=== PATIENT | female | born 1980 | race Caucasian/White ===

== ENCOUNTER → 2016-11-04 | Outpatient (CLI) | payer OTHER ==
[~2016-11-04] MED LIST: AMOX875T PO; AMX500 PO; ASPI-390 PO; ONDA4TAB46 PO
--- NOTE | 2016-11-09 16:49 | ELECTROENCEPHALOGRAPH REPORT ---
CLINICAL DIAGNOSIS: Syncope, question seizures. EEG DIAGNOSIS: Essentially normal during wakefulness. DESCRIPTION OF TRACING: This EEG was done as an outpatient basis and was of excellent technical quality with few or no muscle movement artifacts. Video analysis of patient movement, some behavior is also obtained. Photic stimulation and hyperventilation are performed. Drowsiness and light sleep were not recorded. Under these conditions, there is evidence for normal background rhythm in the alpha range of up to 10 Hz of maximum frequency and 30 microvolts of maximum amplitude. This is maximum in posterior head regions and bilaterally symmetrical. Polymorphic mid frequency theta activity is seen over all head regions without clear focal or regional predominance. Anterior head region maximum bilaterally symmetrical low voltage fast activity in the beta range is present. Photic stimulation provoked some modest driving response without a photomyogenic or photoparoxysmal component. Hyperventilation induces no important changes. At no time during the waking tracing is there evidence for potentially epileptogenic activity in the form of polyspike or spike wave bursts, focal sharp waves or focal spikes. INTERPRETATION: This electroencephalogram is essentially normal during wakefulness without evidence for focal or generalized encephalopathy and without evidence for potentially epileptogenic activity.
== END | disposition home or self-care (01) ==
LOC: C.NEUR 07:55
PROVIDERS: ATTEND Psychiatry & Neurology Neurology
DX: R55 Syncope and collapse (principal)

== ENCOUNTER 2016-11-11 20:13 | Emergency (ER) | payer OTHER ==
[~2016-11-11] VITALS: Ht 157.5 cm; Wt 73.5 kg
[~2016-11-11 20:13] MED LIST changes: -AMOX875T PO; -AMX500 PO; -ASPI-390 PO
[2016-11-11 20:19] VITALS: TEMP 36.9; Ht 157.5 cm; Wt 73.5 kg
[2016-11-11] MEDS ORDERED: AMX500 PO (21:17)
[2016-11-11] MEDS ORDERED: ASPI-390 PO (21:17)
[2016-11-11] MEDS ORDERED: ONDANSETRON INJ 2 MG/ML 2 ML VIAL IV STA (21:56)
[2016-11-11] MEDS ORDERED: KETOROLAC TROMETHAMINE 30 MG/ML VIAL IV STA (21:56)
[2016-11-11] MEDS ORDERED: SODIUM CHLORIDE 0.9% 1000ML 1,000 ML IV ONE ×2 (22:00)
[2016-11-11 22:58] LABS: URINE APPEARANCE CLOUDY (CLEAR); URINE BILIRUBIN NEG (NEG); URINE COLOR YELLOW; URINE EPITHELIAL CELL AUTO >30 /lpf (0-5); URINE NITRITE NEG (NEG); URINE PH 7.5 (4.5-7.5); URINE SPECIFIC GRAVITY 1.021 (1.000-1.030); UROBILINOGEN NEG (NEG); ZZUR CULT IF INDIC CLEAN CATCH NO
[2016-11-11 23:05] LABS: HEMATOCRIT 45.9 % (37-47); MEAN CORPUSCULAR HEMOGLOBIN 30.8 pg (25-34); MEAN CORPUSCULAR HGB CONC 34.6 g/dl (32-36); MEAN PLATELET VOLUME 10.5 fL (7.4-10.4); PLATELET COUNT 317 K/uL (130-400); RED BLOOD COUNT 5.16 M/uL (4.2-5.4); WHITE BLOOD COUNT 16.53 K/uL (4.8-10.8)
[2016-11-11 23:20] LABS: MANUAL MICROSCOPIC REQUIRED? NO; REVIEW REQ? NO
[2016-11-11 23:23] LABS: BUN/CREATININE RATIO 14.4 (10-20); CALCIUM 8.9 mg/dl (8.5-10.1); CREATININE 0.8 mg/dl (0.60-1.20); MAGNESIUM 2.3 mg/dl (1.8-2.4); POTASSIUM 3.8 mmol/L (3.5-5.1)
[2016-11-11 23:33] LABS: ALB/GLOB RATIO 1.1 (0.9-2); THYROID STIMULATING HORMONE 1.3 uIu/ml (0.300-4.500)
[2016-11-11 23:46] LABS: BASO % 0.3 %; BASO ABS # 0.05 K/uL (0-0.2); COMPLETE YES; EOS % 0.9 %; IG% 0.2 %; LYMPH % 40.6 %; LYMPH ABS # 6.71 K/uL (1.2-3.4)
[2016-11-12] MEDS ORDERED: ACETAMINOPHEN 500 MG TAB PO STA (00:07)
[2016-11-12 00:22] LABS: LYME DISEASE AB IGG NEG (NEG); LYME DISEASE AB IGM NEG (NEG)
[2016-11-12] MEDS ORDERED: AMOX875T PO (00:55)
[2016-11-12] MEDS ORDERED: OXYCODONE IR HOME PACK PO ONE (01:00)
[2016-11-12] MEDS ORDERED: AMOXICIL/CLAVU 875MG HOME PACK PO ONE (01:00)
[2016-11-12 01:18] VITALS: BP 117/71; PULSE 73; O2SAT 93
--- NOTE | 2016-11-12 04:45 | EMERGENCY ROOM VISIT NOTE ---
History First contact with patient: 21:42 Chief Complaint: HEADACHE Stated Complaint: HEADACHE,NAUSEA,PASSED OUT LASTNIGHT,REFERREDFORCT History of Present Illness The patient is a 36 year old female who presents to the Emergency Room with complaints of headache and nausea slowly worsening over the past one day. The patient has a fairly recent medical history of intermittent syncopal episodes. She has had 3 or 4 episodes over the past few months, and is currently under the care of both cardiology and neurology. The patient states that she had a syncopal episode last night. She was standing talking to a friend, and the next thing she remembers she woke up on the ground. The patient did not have significant head injury or extremity injury. She states that these episodes are all essentially identical, or she feels flushed, nauseated, and then loses consciousness. She did not notice significant injury immediately following this episode last night, and did not seek immediate medical attention. The patient states that she slept, woke up, and now has her headache. The patient contacted her family doctor, who referred her to the emergency department for further care and management. The patient rates her current discomfort a 6/10. She does not have neck pain, chest pain, chest tightness, shortness of breath, palpitations, or extremity injury. No numbness or paresthesias. She took ibuprofen without significant relief. Review of Systems More than 10 systems were reviewed and otherwise negative with the exception of history of present illness. Past Medical/Surgical History Medical Problems: (1) Full dentures (2) Syncope Family History No pertinent family history Social History Smoking Status: Current Every Day Smoker Alcohol Use: occasionally Drug Use: none Housing Status: lives with family Occupation Status: employed Current/Historical Medications Scheduled Amoxicillin (Amoxicillin), 500 MG PO TID Amoxicillin & Pot Clavulanate (Augmentin 875-125 mg), 1 TAB PO BID Qzoarbt-Hvhseoapsplgy-Cwzdbavq (Excedrin Migraine), 6 TAB PO Q12 Allergies Coded Allergies: No Known Allergies (Unverified , 11/11/16) Physical Exam Vital Signs Date Time Temp Pulse Resp B/P Pulse Ox O2 Delivery O2 Flow Rate FiO2 11/12/16 01:18 73 16 117/71 93 Room Air 11/11/16 23:01 78 128/94 73 134/92 81 130/83 11/11/16 22:41 86 18 125/89 99 Room Air 11/11/16 22:40 Room Air 11/11/16 20:19 36.9 105 18 156/91 97 Room Air Pain Rating (0-10): 1.0 Physical Exam VITALS: Vitals are noted on the nurse's note and reviewed by myself. Vital signs stable. GENERAL: Well-developed, well-nourished, white female, who is in no acute distress and resting comfortably. Patient is cooperative with the examination. HEAD: Normocephalic atraumatic. EARS: External ear normal. External auditory canals clear, tympanic membranes pearly rosario without erythema or effusion bilaterally. EYES: Pupils equal round and reactive to light and accommodation. Conjunctivae without injection, sclerae without icterus. Extraocular movements intact. NOSE: Patent, turbinates without inflammation or discharge. MOUTH: Mucous membranes moist. Tonsils are not enlarged. Pharynx without erythema, blood, or exudate. Uvula midline. Airway patent. NECK: Supple without nuchal rigidity. No lymphadenopathy. No thyromegaly. Cervical spine is nontender. HEART: Regular rate and rhythm without murmurs gallops or rubs. LUNGS: Clear to auscultation bilaterally without wheezes, rales or rhonchi. No retractions or accessory muscle use. ABDOMEN: Positive normal bowel sounds x 4. Soft, nontender, without masses or organomegaly. No guarding or rebound tenderness. MUSCULOSKELETAL: No muscle atrophy, erythema, or edema noted. Full range of motion without joint tenderness in all extremities. No tenderness to palpation. NEURO: Patient was alert and oriented to person place and time. CN II through XII grossly intact. Deep tendon reflexes 2+ throughout. No focal neurological deficits SKIN: The skin was without rashes, erythema, edema, or bruising. Capillary reflex less than 2 seconds. Medical Decision & Procedures ER Provider Diagnostic Interpretation: Preliminary Findings Only See Final Report For Complete Findings CT HEAD: No ICH, mass effect or edema. No evidence of acute cortical stroke. Air-fluid level noted in the left maxillary sinus with partial opacification of the anterior ethmoid air cells. Nonspecific right posterior scalp nodule. Comparison study dated 09/13/2016 Laboratory Results 11/11/16 22:50 Red Blood Count 5.16, Mean Corpuscular Volume 89.0, Mean Corpuscular Hemoglobin 30.8, Mean Corpuscular Hemoglobin Concent 34.6, Mean Platelet Volume 10.5, Neutrophils (%) (Auto) 53.0, Lymphocytes (%) (Auto) 40.6, Monocytes (%) (Auto) 5.0, Eosinophils (%) (Auto) 0.9, Basophils (%) (Auto) 0.3, Neutrophils # (Auto) 8.75, Lymphocytes # (Auto) 6.71, Monocytes # (Auto) 0.83, Eosinophils # (Auto) 0.15, Basophils # (Auto) 0.05 11/11/16 22:50 Test 11/11/16 22:45 11/11/16 22:50 11/11/16 23:03 Urine Color YELLOW Urine Appearance CLOUDY (CLEAR) Urine pH 7.5 (4.5-7.5) Urine Specific Eola 1.021 (1.000-1.030) Urine Protein NEG (NEG) Urine Glucose (UA) NEG (NEG) Urine Ketones NEG (NEG) Urine Occult Blood NEG (NEG) Urine Nitrite NEG (NEG) Urine Bilirubin NEG (NEG) Urine Urobilinogen NEG (NEG) Urine Leukocyte Esterase TRACE (NEG) Urine WBC (Auto) 5-10 /hpf (0-5) Urine RBC (Auto) 5-10 /hpf (0-4) Urine Hyaline Casts (Auto) 1-5 /lpf (0-5) Urine Epithelial Cells (Auto) >30 /lpf (0-5) Urine Bacteria (Auto) NEG (NEG) Urine Test NEG (NEG) White Blood Count 16.53 K/uL (4.8-10.8) Red Blood Count 5.16 M/uL (4.2-5.4) Hemoglobin 15.9 g/dL (12.0-16.0) Hematocrit 45.9 % (37-47) Mean Corpuscular Volume 89.0 fL (80-100) Mean Corpuscular Hemoglobin 30.8 pg (25-34) Mean Corpuscular Hemoglobin Concent 34.6 g/dl (32-36) Platelet Count 317 K/uL (130-400) Mean Platelet Volume 10.5 fL (7.4-10.4) Neutrophils (%) (Auto) 53.0 % Lymphocytes (%) (Auto) 40.6 % Monocytes (%) (Auto) 5.0 % Eosinophils (%) (Auto) 0.9 % Basophils (%) (Auto) 0.3 % Neutrophils # (Auto) 8.75 K/uL (1.4-6.5) Lymphocytes # (Auto) 6.71 K/uL (1.2-3.4) Monocytes # (Auto) 0.83 K/uL (0.11-0.59) Eosinophils # (Auto) 0.15 K/uL (0-0.5) Basophils # (Auto) 0.05 K/uL (0-0.2) RDW Standard Deviation 44.3 fL (36.4-46.3) RDW Coefficient of Variation 13.5 % (11.5-14.5) Immature Granulocyte % (Auto) 0.2 % Immature Granulocyte # (Auto) 0.04 K/uL (0.00-0.02) Anion Gap 12.0 mmol/L (3-11) Est Creatinine Clear Calc Drug Dose 93.0 ml/min Estimated GFR () 111.5 Estimated GFR (Non- 96.2 BUN/Creatinine Ratio 14.4 (10-20) Calcium Level 8.9 mg/dl (8.5-10.1) Magnesium Level 2.3 mg/dl (1.8-2.4) Total Bilirubin 0.2 mg/dl (0.2-1) Aspartate Amino Transf (AST/SGOT) 18 U/L (15-37) Alanine Aminotransferase (ALT/SGPT) 33 U/L (12-78) Alkaline Phosphatase 102 U/L (45-117) Total Protein 7.9 gm/dl (6.4-8.2) Albumin 4.1 gm/dl (3.4-5.0) Globulin 3.8 gm/dl (2.5-4.0) Albumin/Globulin Ratio 1.1 (0.9-2) Thyroid Stimulating Hormone (TSH) 1.300 uIu/ml (0.300-4.500) Lyme Disease IgG Antibody NEG (NEG) Lyme Disease IgM Antibody NEG (NEG) Bedside Troponin I 0.010 ng/ml (0-0.045) Medications Administered Medications (Trade) Dose Ordered Sig/Lillie Route Start Time Stop Time Status Last Admin Dose Admin Sodium Chloride 1,000 ml @ 999 mls/hr Q1H1M ONCE IV 11/11/16 22:00 11/11/16 23:00 DC 11/11/16 22:58 999 MLS/HR Sodium Chloride (Nss 1000ml) 1,000 ml @ 999 mls/hr Q1H1M ONCE IV 11/11/16 22:00 11/11/16 23:00 DC 11/11/16 22:58 999 MLS/HR Ketorolac Tromethamine (Toradol Inj) 30 mg NOW STAT IV 11/11/16 21:56 11/11/16 21:59 DC 11/11/16 22:58 30 MG Ondansetron HCl (Zofran Inj) 4 mg NOW STAT IV 11/11/16 21:56 11/11/16 21:59 DC 11/11/16 22:57 4 MG Acetaminophen (Tylenol Tab) 1,000 mg NOW STAT PO 11/12/16 00:07 11/12/16 00:08 DC 11/12/16 00:13 1,000 MG Amoxicillin/ Clavulanate Potassium (Augmentin 875MG Home Pack) 1 homepack UD ONCE PO 11/12/16 01:00 11/12/16 01:01 DC 11/12/16 01:15 1 HOMEPACK Oxycodone HCl (Roxicodone Immediate Rel 5MG Home Pack) 1 homepack UD ONCE PO 11/12/16 01:00 11/12/16 01:01 DC 11/12/16 01:15 1 HOMEPACK ED Course Physical exam and history were performed. Nursing notes and EMR were reviewed. Patient appears to have a syncopal episode last night, roughly 24 hours ago. The patient has developed a persistent headache with some nausea. She does not report other significant complaints. EKG was performed and was normal sinus rhythm at 67 bpm with no evidence of ST elevation. When compared to EKG of she no longer has nonspecific T wave abnormalities. IV access was established and labs were obtained. The patient was hydrated and medicated as above. She was placed on the cardiac/vascular sonographer. She was sent to CT scan because of her symptoms. The patient was reevaluated multiple times with course of her stay. Her blood work is as above and was reviewed. She does have an elevated white blood cell count of 16,000. She does not have a significant anemia, bandemia, or gross electrolyte imbalance. Lipase and transaminases are nondiagnostic. Troponin is negative. TSH is within normal limits. Lyme screen is negative. Urine is without signs of infection. The patient CT scan was read as above and was reviewed. She appears to have a sinusitis on CT imaging. Clinically this could correlate with both her elevated white blood cell count and her head pain. The patient does not have signs of fracture or bleed on CT imaging. I discussed his care with the patient , and will provide her a course of Augmentin for her symptoms. I recommend that she continue to follow with neurology and cardiology regarding her syncope. She should follow with her PCP regarding her sinus infection. The patient was otherwise invited back to the ER with any new, worsening, or concerning symptoms. She voiced understanding and rated her discomfort a 0/10 at the time of departure. The chart was completed utilizing Ning Speech Voice Recognition Software. Grammatical errors, random word insertions, pronoun errors, and incomplete sentences are an occasional consequence of this system due to software limitations, ambient noise, and hardware issues. Any formal questions or concerns about the content, text, or information contained within the body of this dictation should be directly addressed to the provider for clarification. . Medical Decision The differential diagnosis includes, but is not limited to: Syncope, cardiopulmonary event, dysrhythmia, acute intracranial bleed, meningitis, encephalitis, mass or mass effect, sinusitis, infection, tumor, headache, temporal arteritis and carbon monoxide exposure, and migraine. Impression Primary Impression: Sinusitis, acute Additional Impression: Headache Departure Information Dispostion Home / Self-Care Condition GOOD Prescriptions Amoxicillin & Pot Clavulanate (Augmentin 875-125 mg) 1 Tab Tab 1 TAB PO BID for 9 Days, #18 TAB Prov: Cornell Groves PA-C 11/12/16 Forms HOME CARE DOCUMENTATION FORM, IMPORTANT VISIT INFORMATION Patient Instructions My [facility] Additional Instructions You were seen and evaluated today on an emergency basis only. This is not a substitute for, or an effort to provide, complete comprehensive medical care. It is not possible to recognize and treat all injuries or illnesses in a single emergency department visit. For this reason it is recommended that you followup with your primary care physician in the next 1-2 days for recheck of your condition. Discontinue amoxicillin. Begin Augmentin. Amoxicillin Clavulanate (Augmentin) 875mg: Take one pill twice daily for 10 total days for your infection. All antibiotics can cause diarrhea. If this occurs and you feel worse or it does not resolve in 1-2 days follow up with your doctor or return to the Emergency Department as this could be signs of serious underlying problems. Any medication can cause an allergic reaction, stop the pills immediately and return to the ER for rash, hives, breathing difficulties, or swelling. Oxycodone (OxyIR) 5mg (homepack): Take ONE pill every SIX hours for breakthrough pain. Avoid alcohol, operating machinery or dangerous equipment, working on ladders or roofs, DRIVING, or situations where being under the influence may be dangerous. It is recommended to use an [id number]-[id number] stool softener such as Colace, 100mg twice daily while taking this medication to avoid constipation. You are welcome to return to the emergency department anytime with new, worsening, or concerning symptoms. Problem Qualifiers
--- NOTE | 2016-11-12 06:21 | DIAGNOSTIC IMAGING REPORT ---
CT OF THE HEAD WITHOUT CONTRAST CLINICAL HISTORY: Syncope. Headache. COMPARISON STUDY: Head CT September 13, 2016. CT DOSE: 537.48 mGy.cm TECHNIQUE: Helical axial images of the head were obtained without IV contrast. Automated exposure control was utilized for the study. FINDINGS: No acute intracranial hemorrhage, midline shift or mass effect is present. Ventricular system is normal. Basilar cisterns are patent. There are no extra-axial collections. Blackburn-white differentiation is maintained. There are no findings to suggest acute dural sinus thrombosis or acute territorial infarct. A few scalp nodules are unchanged. These likely reflect sebaceous cysts. No significant calvarial abnormality is present. An air-fluid level is noted within visualized portions of the left maxillary sinus. There is moderate mucosal thickening of the ethmoid sinuses. Mastoid air cells are clear. IMPRESSION: 1. No acute intracranial findings. 2. Air-fluid level within visualized portions of the left maxillary sinus which may reflect acute sinusitis. Partial ethmoid sinus opacification. Electronically signed by: Deandre Edwards M.D. 11/12/2016 6:20 AM Dictated Date/Time: 11/12/2016 6:18 AM
== END 2016-11-12 01:28 | disposition home or self-care (01) ==
LOC: C.EDB 20:16 → C.EDC 11-12 01:28
DX: J01.90 Acute sinusitis, unspecified (principal); R51 Headache; R55 Syncope and collapse; F17.200 Nicotine dependence, unspecified, uncomplicated

== ENCOUNTER 2016-12-16 13:42 | Day surgery (SDC) | payer OTHER ==
[~2016-12-16] VITALS: Ht 157.5 cm; Wt 74.0 kg
[~2016-12-16 13:42] MED LIST changes: +AMX500 PO; +ASPI-390 PO; +CEFAZOLIN 1000MG/55 ML D5W IV SCH; +LACTATED RINGER'S 1000ML 1,000 ML IV SCH; -ONDA4TAB46 PO; +PATIENT'S HEIGHT AND/OR WEIGHT NEEDED ONE
[2016-12-16 13:52] VITALS: Ht 157.5 cm; Wt 74.0 kg
--- NOTE | 2016-12-16 14:09 | History & Physical Bridge Note ---
H&P Re-Evaluation Bridge Note: I have examined the patient, reviewed the History & Physical and in the interval since the performance of the History & Physical I have noted the following changes of clinical significance: No changes noted
--- NOTE | 2016-12-16 14:10 | Procedure Note ---
Pre-Mod Sedation Assessment General Date of Moderate Sedation: Dec 16, 2016. Review Cardiovascular: regular rate, rhythm Abdomen: soft Lungs: lungs clear Airway Class: II Pre-Sedation Airway Assessment Able to Visualize Vocal Cords: No Short Thick Neck: No Hx of Sleep Apnea: No Smoking Status: Current Every Day Smoker Mallampati Classification: Class II ASA Classification: Class II Procedure Planning Contraindications-for Mod Sed: None Yes Notes The planned sedation has been discussed with the patient and consent obtained. I have identified the patient, determined the appropriateness of sedation and have assessed the patient immediately prior to the procedure. All medicine(s) and interventions are by my order.
[2016-12-16 14:56] LABS: BUN/CREATININE RATIO 9.3 (10-20); CALCIUM 9.1 mg/dl (8.5-10.1); CREATININE 0.6 mg/dl (0.60-1.20); POTASSIUM 3.7 mmol/L (3.5-5.1)
[2016-12-16] MEDS ORDERED: FENTANYL CITRATE INJ 50 MCG/1 ML 2 ML VIAL ONE (14:58)
[2016-12-16] MEDS ORDERED: MIDAZOLAM HCL 1 MG/ML 2ML VIAL ONE (14:58)
[2016-12-16] MEDS ORDERED: LIDOCAINE HCL 1% 20 ML VIAL ONE (14:59)
--- NOTE | 2016-12-16 15:25 | Procedure Note ---
Post-Mod Sedation Assessment General Date of Moderate Sedation Dec 16, 2016. Review - Discharge Criteria Vital Signs Stable: Yes Alert/Oriented/Conversant: Yes Returned to Baseline Mental St: Yes Nausea Absent/Minimal: Yes Pain/Discomfort/Absent/Minimal: Yes Normal/Baseline Respirations: Yes Active Bleeding?: No Pt Received D/C Instructions: N/A Prescriptions Given: None Specific Proced. D/C Criteria Distal Pulses Present (Cardiac: N/A Groin site assessed-Card Cath: N/A Voided Prior To Discharge: N/A Discharged Patients Adult Escort/Transportation: N/A
--- NOTE | 2016-12-16 15:28 | [facility] Post Operative Brief Note ---
Immediate Operative Summary Operative Date Dec 16, 2016. Pre-Operative Diagnosis Recurrent syncope Post-Operative Diagnosis same Procedure(s) Performed LINQ insertion Surgeon isamar sherman Bottle Feeder Surgeon(s) none Estimated Blood Loss None Findings None Fluids (cc crystalloids) 75cc Specimens none Drains none Anesthesia 2mg versed and 75mcg fentanyl Complication(s) None Disposition asu/mtu
--- NOTE | 2016-12-16 15:30 | Discharge Instructions ---
Discharge Instructions Admission Reason for Admission: Syncope Discharge Discharge Diagnosis / Problem: syncope Discharge Goals Goal(s): Improve function Activity Recommendations Activity Limitations: resume your previous activity Lifting Limitations: none Exercise/Sports Limitations: none May Resume Sexual Activity: when tolerated Shower/Bathe: tomorrow Driving or Machine Use: no driving until we find more etiology into your syncope . Current Hospital Diet Patient's current hospital diet: Discharge Diet Recommended Diet: Regular Diet Procedures Procedures Performed: LINQ insertion Pending Studies Studies pending at discharge: no Medical Emergencies . Who to Call and When: Medical Emergencies: If at any time you feel your situation is an emergency, please call 911 immediately. . Non-Emergent Contact Non-Emergency issues call your: Adult Education Professional . . "Provider Documentation" section prepared by Clau Rogers. VTE Core Measure Inpt VTE Proph given/why not?: Treatment not indicated
[2016-12-16 15:50] VITALS: BP 124/71; PULSE 106; TEMP 36.6; O2SAT 94
[2016-12-16 16:10] VITALS: BP 119/86; PULSE 108; O2SAT 97
[2016-12-16 16:50] VITALS: BP 123/81; PULSE 117; O2SAT 97
--- NOTE | 2016-12-17 01:02 | OPERATIVE REPORT ---
DATE OF OPERATION: 12/16/2016 PREOPERATIVE DIAGNOSES: Recurrent syncope and a negative tilt table. POSTOPERATIVE DIAGNOSES: Recurrent syncope and a negative tilt table. PROCEDURE: A LINQ insertion. SURGEON: Dr. Clau Rogers. CARE AIDE: None. ANESTHESIA: Monitored conscious sedation, total of 2 mg of Versed, 50 mcg of fentanyl, start time 1510 and end time 1518. INTRAVENOUS FLUIDS: 75 mL. This includes the antibiotic. BLOOD LOSS: None. COMPLICATIONS: None. CONDITION: Stable. URINE OUTPUT: Not applicable. SPECIMENS: None. FINDINGS: None. DRAINS: None. INDICATIONS FOR PROCEDURE: This is a 36-year-old female who has a past medical history of recurrent syncope of unclear etiology. She underwent a tilt table test back in September that was negative for any inducible syncope. She had seen a neurologist and had a neurological workup which was all negative as well, but she continues to have recurrent syncope, so we recommended a LINQ insertion to rule out any significant arrhythmia as an etiology. CONSENT: Consent was obtained prior to the patient going into the electrophysiology lab. The patient was explained of risks, benefits, alternatives to the procedure. Risks include but not limited to sudden cardiac , cardiac arrhythmias, cerebrovascular accident, myocardial infarction, and bleeding and infection. The patient understood these risks and agreed to go to the procedure as planned. Informed consent was obtained. DESCRIPTION OF PROCEDURE: The patient was brought into the electrophysiology lab in a fasting state. She was connected to continuous cardiac care nurse. A time-out was performed to ensure patient's identity and procedure correctly. The patient received prophylactic antibiotics prior to incision. She was prepped and draped over the left inframammary and left sternal border region in a normal surgical standard fashion. Monitor conscious sedation was given throughout the procedure for patient's comfort level. Beacon precautions were maintained throughout the procedure. A 10 mL of 1% lidocaine were given in inframammary space within the fourth intercostal rib cage for local anesthesia. Then using the LINQ insertion kit, a LINQ device was inserted without any complications. The incision was closed with 1 interrupted suture stitch of a 4-0 Monocryl then followed by a second layer with 4-0 Monocryl running stitch and Dermabond was applied. EQUIPMENT: 1. [employer] LINQ11, serial number [id number]. 2. P waves are measured at 0.6 millivolts. Device was programmed tachy 171 beats per minute, 14 intervals or more; angelika 30 beats per minute, 4 intervals or more; and 3 second pause. PLAN: Monitor patient post-sedation. She should follow up in my [facility] office in 1 week for a device and wound check. I attest to the content of the Intraoperative Record and any orders documented therein. Any exceptions are noted below. THOMAS
== END 2016-12-16 17:00 | disposition home or self-care (01) ==
LOC: C.ACU 13:42
PROVIDERS: ATTEND Internal Medicine
DX: R55 Syncope and collapse (principal); J40 Bronchitis, not specified as acute or chronic; F17.200 Nicotine dependence, unspecified, uncomplicated

== ENCOUNTER 2017-12-24 03:19 | Inpatient (IN) | payer OTHER ==
[~2017-12-24] VITALS: Ht 157.5 cm; Wt 82.0 kg
[~2017-12-24 03:19] MED LIST changes: -CEFAZOLIN 1000MG/55 ML D5W IV SCH; -LACTATED RINGER'S 1000ML 1,000 ML IV SCH; -PATIENT'S HEIGHT AND/OR WEIGHT NEEDED ONE
[2017-12-29] MEDS ORDERED: PRENTAB26 PO (08:23)
[2017-12-29] MEDS ORDERED: CHOL100041 (08:24)
[2017-12-29 08:26] VITALS: Ht 157.5 cm; Wt 82.0 kg
[2017-12-29 09:19] LABS: HEMOGLOBIN 13.9 g/dL (12.0-16.0); MEAN CELL VOLUME 86.9 fL (80-100); MEAN CORPUSCULAR HEMOGLOBIN 29.4 pg (25-34); MEAN CORPUSCULAR HGB CONC 33.9 g/dl (32-36); MEAN PLATELET VOLUME 11.9 fL (7.4-10.4); PLATELET COUNT 240 K/uL (130-400); RED CELL DISTRIBUTION WIDTH SD 44.4 fL (36.4-46.3); WHITE BLOOD COUNT 12.59 K/uL (4.8-10.8)
[2017-12-29] MEDS: LACTATED RINGER'S 1000ML 1,000 ML IV SCH ×2 (09:30→17:48)
--- NOTE | 2017-12-29 10:27 | Progress Note ---
Progress Note Date of Service Dec 29, 2017. Progress Note Admit note 37 F P0000 at 40.5 weeks admitted for induction of labor for post dates. course complicated by gestational diabetes controlled by diet alone. GBS is negative. FHT Cat 1. Cervix closed/50/-3/posterior/vertex. EFW is 8 lbs. Will start with Cervidil 10 mg vaginally for cervical ripening.
[2017-12-29] MEDS ORDERED: DINOPROSTONE 10 MG INSERT PV ONE (10:30)
[2017-12-29] MEDS: NICOTINE 14 MG/24 HR TDSY TD SCH (20:40)
[2017-12-29] MEDS ORDERED: MISOPROSTOLTAB 50 MCG TAB PO SCH (23:59)
[2017-12-30] MEDS ORDERED: LACTATED RINGER'S 1000ML 500 ML IV PRN ×2 (07:00→13:08)
[2017-12-30] MEDS ORDERED: OXYTOCIN 30 UNITS/500ML NSS IV PRN ×2 (07:00→20:30)
[2017-12-30] MEDS: LACTATED RINGER'S 1000ML 1,000 ML IV SCH ×3 (10:05→16:58)
[2017-12-30] MEDS ORDERED: BUPIVACAINE 0.25% 30 ML VIAL ONE (12:09)
[2017-12-30] MEDS ORDERED: EpHEDrine SULFATE INJ 50 MG/ML AMP ONE (12:09)
[2017-12-30] MEDS ORDERED: FENTANYL 2MCG/ML ROPIV 1.25MG/ML 100ML BAG EPI ONE (12:10)
[2017-12-30] MEDS ORDERED: FENTANYL CITRATE INJ 50 MCG/1 ML 2 ML VIAL ONE (12:10)
[2017-12-30] MEDS ORDERED: NALOXONE HCL INJ 1 MG in SODIUM CHLORIDE 0.9% 1000ML 1,000 ML IV PRN ×4 (13:08)
[2017-12-30] MEDS ORDERED: PROMETHAZINE HCL INJ 25 MG in SODIUM CHLORIDE 0.9% 50ML 50 ML IV PRN (13:15)
[2017-12-30] MEDS ORDERED: EpHEDrine SULFATE INJ 50 MG/ML AMP IV PRN (13:15)
[2017-12-30] MEDS ORDERED: NALBUPHINE HCL INJ 10 MG/ML AMP IV PRN (13:15)
[2017-12-30] MEDS ORDERED: DiphenhydrAMINE HCL 50 MG/ML VIAL IV PRN (13:15)
[2017-12-30] MEDS ORDERED: ONDANSETRON INJ 2 MG/ML 2 ML VIAL IV PRN (13:15)
[2017-12-30] MEDS ORDERED: NALOXONE HCL INJ 0.4 MG/1 ML VIAL/CARP IV PRN (13:15)
[2017-12-30] MEDS ORDERED: FENTANYL 2MCG/ML ROPIV 1.25MG/ML 100ML BAG EPI PRN (13:15)
[2017-12-30] MEDS ORDERED: OXYCODONE/ACETAMINOPHEN 5-325 TAB PO PRN (20:30)
[2017-12-30] MEDS ORDERED: BENZOCAINE 20% AER SPR 82.5 GM CAN EXT PRN (20:30)
[2017-12-30] MEDS ORDERED: DIPHTHERIA/TETANUS/PERTUSSIS 0.5 ML SYR/VIAL IM. ONE (20:30)
[2017-12-30] MEDS ORDERED: HYDROCORTISONE ACETATE 25 MG SUPP PR PRN (20:30)
[2017-12-30] MEDS ORDERED: ACETAMINOPHEN 325 MG TAB PO PRN (20:30)
[2017-12-30] MEDS ORDERED: SUPERCREAM 0.870 % 15GM JAR EXT PRN (20:30)
[2017-12-30] MEDS ORDERED: LANOLIN OINT EXT PRN (20:30)
[2017-12-30] MEDS: IBUPROFEN 600 MG TAB PO PRN (21:45)
--- NOTE | 2017-12-30 22:21 | Anesthesia Procedure Note ---
Anesthesia Epidural Removal Nt Date & Time Dec 30, 2017 at 22:21 Vital Signs Pain Intensity: 3.0 Notes Mental Status: alert / awake / arousable, participated in evaluation Nausea / Vomiting: adequately controlled Pain: adequately controlled Airway Patency, RR, SpO2: stable & adequate BP & HR: stable & adequate Hydration State: stable & adequate Neuraxial Anesthesia: was administered Anesthetic Complications: no major complications apparent, pt satisfied with anesthetic care Epidural: removed without complications, with tip intact
--- NOTE | 2017-12-30 23:15 | DELIVERY SUMMARY ---
DATE OF OPERATION: 12/30/2017 TIME OF DELIVERY: 17:54 DELIVERY OF PLACENTA: 17:58 DELIVERY NOTE: The patient is a 37-year-old 1 para 0 at 40 weeks and 6 days gestation who was admitted to Labor and Delivery on the morning of 12/29/2017, for a scheduled induction of labor secondary to postdates and GDMA1, diet controlled and was well controlled throughout her . She was given Cervidil 10 mg vaginally on the morning of admission and was given 50 mcg of Cytotec on the evening of 12/29/2017. On the morning of 12/30/2017, she was found to be 3 cm, 50% effaced and -3 station. Oxytocin per protocol was began for labor augmentation. She received an epidural for anesthesia. Artificial rupture of membranes was performed at 11:36 with meconium stained fluid noted. She reached complete dilation at 17:23. She pushed to delivery at 19:54. She delivered a viable male infant in the left occiput anterior position. Nuchal cord x2 was reduced at delivery. The baby was delivered and placed on patient's abdomen. The baby was bulb suctioned and cord was clamped x2 and cut. Apgars were 7 at 1 minutes and 9 at 5 minutes. Please see nursing notes for further baby assessment. Cord blood was then obtained. Intact placenta with 3-vessel cord was delivered at 17:58. Oxytocin infusion was then begun. The lower uterine segment and vagina were cleared of any blood clots and debris. Exploration of the perineum noted a second degree perineal laceration, which was repaired with 2-0 and 3-0 Vicryl sutures in layers. Excellent hemostasis was noted. No other lacerations were seen. Estimated blood loss was 300 mL. All sponge, instrument and needle counts were found to be correct x2. Both patient and baby tolerated the delivery well and were in recovery with stable vital signs. I attest to the content of the Intraoperative Record and any orders documented therein. Any exception s are noted below.
[2017-12-31] VITALS (7 sets, daily range): BP systolic 129–142; BP diastolic 74–83; PULSE 80–108; TEMP 36.7–37
[2017-12-31] MEDS: IBUPROFEN 600 MG TAB PO PRN ×4 (04:07→23:43)
[2017-12-31 07:35] LABS: HEMATOCRIT 34.8 % (37-47); HEMOGLOBIN 11.3 g/dL (12.0-16.0)
[2017-12-31] MEDS: PRENATAL VITAMIN TAB PO SCH (08:20)
[2017-12-31] MEDS: DOCUSATE SODIUM 100 MG CAP PO SCH ×2 (08:20→20:02)
[2017-12-31] MEDS: FERROUS SULFATE 325 MG TAB PO SCH (08:20)
[2017-12-31] MEDS: NICOTINE 14 MG/24 HR TDSY TD SCH (08:21)
--- NOTE | 2017-12-31 10:49 | OB/GYN Progress Note ---
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 Subjective conversation w/ patient, physical exam Ambulation: ambulating normally Voiding: no voiding problems Passing Gas: Yes Diet Tolerance: Regular Diet Lochia: Small Feeding Type: Breast Feeding Objective Vital Signs Date Time Temp Pulse Resp B/P (MAP) Pulse Ox O2 Delivery O2 Flow Rate FiO2 12/31/17 08:00 36.7 80 18 137/81 (99) Room Air 12/31/17 04:10 36.8 84 17 132/80 (97) Room Air 12/31/17 00:00 Room Air 12/31/17 00:00 37.0 80 18 137/78 (97) Room Air Physical Exam General Appearance: NO APPARENT DISTRESS Abdomen: non tender, soft Fundus: Firm Extremities: non-tender, normal inspection, no pedal edema Laboratory Results Last 24 Hours Test 12/31/17 07:27 Hemoglobin 11.3 g/dL Hematocrit 34.8 % Assessment and Plan Post- Day Number: 1 Continue Routine Care: tent d/c in AM
[2017-12-31] MEDS ORDERED: BISACODYL 5 MG TABEC PO SCH (20:00)
[2018-01-01 06:10] LABS: HEMATOCRIT 35.3 % (37-47); HEMOGLOBIN 11.7 g/dL (12.0-16.0); MEAN CELL VOLUME 87.4 fL (80-100); MEAN CORPUSCULAR HGB CONC 33.1 g/dl (32-36); MEAN PLATELET VOLUME 11.7 fL (7.4-10.4); PLATELET COUNT 237 K/uL (130-400); RED CELL DISTRIBUTION WIDTH CV 14.5 % (11.5-14.5); RED CELL DISTRIBUTION WIDTH SD 46.2 fL (36.4-46.3); WHITE BLOOD COUNT 19.69 K/uL (4.8-10.8)
[2018-01-01] MEDS ORDERED: BISACODYL 10 MG SUPP PR PRN (07:00)
[2018-01-01 08:00] VITALS: BP 142/87; PULSE 76; TEMP 36.6
[2018-01-01] MEDS: DOCUSATE SODIUM 100 MG CAP PO SCH (08:11)
[2018-01-01] MEDS: PRENATAL VITAMIN TAB PO SCH (08:11)
[2018-01-01] MEDS: FERROUS SULFATE 325 MG TAB PO SCH (08:11)
[2018-01-01] MEDS: NICOTINE 14 MG/24 HR TDSY TD SCH (08:12)
[2018-01-01 10:50] VITALS: BP 126/82
[2018-01-01] MEDS ORDERED: NICO14DI5 TD (11:06)
[2018-01-01] MEDS ORDERED: MTR600X PO (11:06)
[2018-01-01] MEDS ORDERED: MISC-836 (11:06)
--- NOTE | 2018-01-01 11:07 | Discharge Instructions ---
Discharge Instructions Date of Service Jan 01, 2018. Admission Reason for Admission: Induction Discharge Discharge Diagnosis / Problem: Vaginal Delivery Discharge Goals Goal(s): Routine recovery after delivery Medications Continue Dispensed Medications: supercream, dermaplast, tucks, lansinoh Activity Recommendations Activity Limitations: per Instructions/Follow-up section . Instructions / Follow-Up Instructions / Follow-Up ACTIVITY RECOMMENDATIONS: * Gradual return to full activity over the next 2-3 weeks. * No lifting - nothing heavier than baby over the next 2-3 weeks. * Do not engage in vigorous exercise, sexual activity or sports until cleared by your physician. * Do not drive or operate any motorized equipment until cleared by your physician. * You may shower/bathe daily. BREAST CARE: If you are not breast feeding: * Wear a supportive bra 24 hours a day for one to two weeks. * Avoid stimulating your breasts and nipples as much as possible during the first few weeks after delivery. * When taking a shower, have the warm water hit your back, not breasts. * When your breasts feel full, apply ice packs. Usually three to four times a day helps ease the discomfort. * Take a mild pain medication (Tylenol/Motrin) when you are uncomfortable. If breast feeding: * Use breast milk to lubricate nipples. Lansinoh cream may be used for sore nipples. You do not need to remove cream prior to breast feeding. If using a different brand of cream, check the label for directions regarding removal of cream prior to nursing. * Wear a supportive bra. * If having problems with breasts or breast feeding, call a leasing sales consultant or your health care provider. EPISIOTOMY CARE: After delivery, if you have an episiotomy (stitches), the following steps will ease discomfort and aid healing. * For the first 24 hours after delivery, place ice packs next to your episiotomy to help reduce swelling. * After the first 24 hour-period, sitz baths, either portable or in the tub, are suggested. A shower with a shower arm sprayed over the episiotomy may be comforting. * Nikki care should be done after each voiding and bowel movement. Squirt warm water from a plastic bottle over the perineum (region of the body between the anus and urinary opening) and pat dry. * Use Dermoplast to ease discomfort. Shake container. [place] directly over the episiotomy. * Place a Tucks on a clean sanitary pad next to your episiotomy. OVER THE COUNTER MEDICATION: * For discomfort or pain, you may use Acetaminophen (Tylenol), Ibuprofen (Advil ), or Naproxen (Aleve) following the package directions. * For constipation you may use Colace following the package directions. SPECIAL CARE INSTRUCTIONS: When you are discharged from the hospital, it is important for you to follow the instructions listed below: * During the first week at home, you should be able to care for yourself and your baby. In addition, the usual light household activities are encouraged. * Limit your activities to the way you feel. Do not try to clean the house or move furniture. Be sensible. * If you actively engage in sports and have done so up until the time of your delivery, you may resume these activities as soon as you feel able. This may take up to one month or even longer. Use good judgment. * Continue to take your vitamins for at least six weeks after the of your baby. * Your diet need not be limited unless you were on a special diet before your delivery. Breast-feeding mothers need around 2500 calories per day and at least 64-80 ounces of fluid per day (8 to 10 glasses). * You should eat foods from the four major food groups. Crash diets or fad diets are to be avoided. Eating lean meats, fresh fruits and vegetables, low-fat dairy products, high fiber foods and a regular exercise program, will help you get back to your pre- weight without putting your health at risk. * Constipation is sometimes a problem after delivery. Take a mild laxative as needed. If breast feeding, Milk of Magnesia is acceptable to use. You may use a suppository or Fleets enema if no episiotomy. * A daily shower or tub bath is suggested. Be sure to thoroughly and gently dry the perineum. * A bloody vaginal discharge will usually continue until around four weeks post . A small amount of bleeding may continue for as long as six weeks. Vaginal discharge changes from the bright red bleeding after delivery to pink then brownish and finally yellowish-pink before becoming white and disappearing. * Bleeding may increase with activity. Your first period may come in 4-8 weeks. If you are breast feeding, your period may be delayed even longer. * Tok (sex) can begin whenever both you and your partner feel comfortable and do not have any form of genital infection. It is recommended that you wait until after your return appointment and discuss with your physician. If you have questions, please talk to your health care practitioner. A condom should be used to prevent infection and . * Foreplay, gentle intercourse and lubrication is very important the first several times to prevent pain. A water-based lubricant such as K-Y jelly or Astroglide may be used. * Tampons may be used six weeks after delivery. * Douching should be avoided for 6 weeks after delivery. * If you have RH negative blood and your baby is RH positive, you will receive RHOGAM by injection prior to discharge. The nurse will give you a card to keep with you that has the date and place that you received RHOGAM after delivery. * During your care, you had a Rubella screen done to check for the presence of rubella antibodies in your blood. If your test was negative, you will receive a Rubella vaccine prior to discharge. This vaccine may cause a fever, soreness at the injection site and flu-like symptoms. If these symptoms persist, notify your health care practitioner. is not advised for three months after a Rubella vaccine. There is a higher chance of having a baby with defects if conceived within three months of getting the vaccine. * If you were discharged 24 hours from delivery or before 48 hours: Visiting nurses will come to your home 48 hours after discharge to assess you and your baby. The visiting nurse will meet with you while you are in the hospital to arrange a time and get directions to your home. * Verbalizes understanding of car seat law as reviewed with patient nursing. * Car Seat hand-out given and reviewed with patient by nursing. * Shaken baby information reviewed with patient by nursing. Call you doctor if: * Heavy bleeding (saturating several pads an hour) or passing clots the size of your fist. * A fever >101 degrees F (38.3 degrees C) on two occasions four hours apart and/or chills. * Unusual pain in the pelvic or vaginal areas. * "Baby Blues" lasting longer than two weeks. If you have any questions or concerns, call your health care practitioner at . FOLLOW-UP VISIT: * Please call the office at to schedule a 6 week examination. It is important you keep this appointment. * It is important for you to make arrangements for either yearly or twice yearly check-ups thereafter. Current Hospital Diet Patient's current hospital diet: Regular OB Diet Discharge Diet Recommended Diet: Regular OB Diet Pending Studies Studies pending at discharge: no Medical Emergencies . Who to Call and When: Medical Emergencies: If at any time you feel your situation is an emergency, please call 911 immediately. . Non-Emergent Contact Non-Emergency issues call your: Primary Care Provider, Retirement Assistant . . "Provider Documentation" section prepared by Chacho Bliss. . [place] Drug Monitoring Program Search Results: no issues identified
--- NOTE | 2018-01-01 11:09 | OB/GYN Progress Note ---
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 Subjective conversation w/ patient, physical exam Ambulation: ambulating normally Voiding: no voiding problems Passing Gas: Yes Diet Tolerance: Regular Diet Lochia: Moderate Feeding Type: Breast Feeding Pain: 2/10 Notes: Doing well, no concerns. Pain well controlled. Lochia decreasing. Tolerating regular diet. Would like to go home today. Objective Vital Signs Date Time Temp Pulse Resp B/P (MAP) Pulse Ox O2 Delivery O2 Flow Rate FiO2 01/01/18 08:00 36.6 76 18 142/87 (105) Room Air 01/01/18 08:00 Room Air 12/31/17 23:35 Room Air 12/31/17 23:35 37.0 85 18 132/83 (99) Room Air 12/31/17 19:20 36.8 108 18 142/83 (102) Room Air 12/31/17 16:10 36.9 88 18 131/81 (98) Room Air 12/31/17 16:10 Room Air 12/31/17 12:00 36.8 87 18 129/74 (92) Room Air Physical Exam General Appearance: WELL-APPEARING Respiratory/Chest: chest non-tender, lungs clear Cardiovascular: regular rate, rhythm Abdomen: normal bowel sounds, soft Fundus: Firm Extremities: normal range of motion, non-tender, no calf tenderness Laboratory Results Last 24 Hours Test 01/01/18 05:50 White Blood Count 19.69 K/uL Red Blood Count 4.04 M/uL Hemoglobin 11.7 g/dL Hematocrit 35.3 % Mean Corpuscular Volume 87.4 fL Mean Corpuscular Hemoglobin 29.0 pg Mean Corpuscular Hemoglobin Concent 33.1 g/dl RDW Standard Deviation 46.2 fL RDW Coefficient of Variation 14.5 % Platelet Count 237 K/uL Mean Platelet Volume 11.7 fL Assessment and Plan Post- Day Number: 2 Continue Routine Care: -D/C home today -F/U in 6 weeks.
[2018-01-01] MEDS: IBUPROFEN 600 MG TAB PO PRN (14:18)
[2018-01-01 16:10] VITALS: BP_DIAS 82; PULSE 76; TEMP 36.6
== END 2018-01-01 16:10 | disposition home or self-care (01) | DRG 775 ==
LOC: C.LD 12-29 07:19 → C.OBG 12-30 22:36
PROVIDERS: ADMIT Obstetrics & Gynecology; ATTEND Obstetrics & Gynecology
PROC: 3E0P7GC Introduction of Other Therapeutic Substance into Female Reproductive, Via Natural or Artificial Opening (ICD-10-PCS; 2017-12-29)
PROC: 10E0XZZ Delivery of Products of Conception, External Approach (ICD-10-PCS; principal; 2017-12-30)
PROC: 0KQM0ZZ Repair Perineum Muscle, Open Approach (ICD-10-PCS; principal; 2017-12-30)
DX: O48.0 Post-term pregnancy (principal); O69.81X0 Labor and delivery complicated by cord around neck, without compression, not applicable or unspecified; O77.0 Labor and delivery complicated by meconium in amniotic fluid; O09.513 Supervision of elderly primigravida, third trimester; O70.1 Second degree perineal laceration during delivery; O24.420 Gestational diabetes mellitus in childbirth, diet controlled; Z37.0 Single live birth; Z3A.40 40 weeks gestation of pregnancy

== ENCOUNTER 2018-06-10 22:33 | Observation (INO) | payer OTHER ==
[~2018-06-10] VITALS: Ht 157.5 cm; Wt 73.7 kg
[~2018-06-10 22:33] MED LIST changes: +ACET-1256 PO; -AMX500 PO; -ASPI-390 PO; +NORT10CA2 PO
[2018-06-10] MEDS ORDERED: KETOROLAC TROMETHAMINE 15 MG/ML VIAL IV STA (22:59)
--- NOTE | 2018-06-10 23:01 | EMERGENCY ROOM VISIT NOTE ---
History First contact with patient: 22:40 Chief Complaint: ABDOMINAL PAIN Stated Complaint: SHARP PAIN UPPER ABD Nursing Triage Summary: epigastric/upper abdominal pain History of Present Illness The patient is a 37 year old female who presents to the Emergency Room with complaints of abdominal pain. The patient states that she has been developing upper abdominal pain every night for the past 3 days. She states that the pain occurs every night between 9 and 11 PM. She states it has been occurring both while she is working and sitting at home. It does not seem to be exertional related to any foods. The pain typically lasts 2-2.5 hours at a time. She states the pain is a squeezing sensation and rates the discomfort a 6/10. She has taken Tylenol without relief. She states she had 2 episodes of vomiting the first night that this occurred, but has not had any nausea or vomiting since. She denies shortness of breath. She denies urinary symptoms, fevers or changes in her bowel movements. She states that she has an implanted loop recorder due to fainting episodes of 1.5 years ago. She denies any recent fainting episodes. She otherwise denies any medical problems or surgical history. Review of Systems A complete 10 point review of systems was reviewed with the patient with pertinent positives and negatives as per history of present illness. All else were negative. Past Medical/Surgical History Medical Problems: (1) Full dentures (2) Syncope (3) term induction Family History No pertinent family history Social History Smoking Status: Current Every Day Smoker Alcohol Use: occasionally Drug Use: none Housing Status: lives with family Occupation Status: employed Current/Historical Medications Scheduled Nortriptyline (Pamelor), 10 MG PO HS Physical Exam Vital Signs Date Time Temp Pulse Resp B/P (MAP) Pulse Ox O2 Delivery O2 Flow Rate FiO2 06/10/18 23:57 83 16 123/69 99 Room Air 06/10/18 22:37 37.3 105 18 125/82 99 Room Air Physical Exam VITALS: Vitals are noted on the nurse's note and reviewed by myself. Vital signs stable. GENERAL: This is a 37-year-old female, in no acute distress, nondiaphoretic, well-developed well-nourished. SKIN: The skin was without rashes. HEAD: Normocephalic atraumatic. EARS: External auditory canals clear, tympanic membranes pearly rosario without erythema or effusion bilaterally. EYES: Pupils equal round and reactive to light and accommodation. MOUTH: Mucous membranes moist. Tonsils are not enlarged. Pharynx without erythema or exudate. NECK: Supple without nuchal rigidity. No lymphadenopathy. HEART: Regular rate and rhythm without murmurs gallops or rubs. LUNGS: Clear to auscultation bilaterally without wheezes, rales or rhonchi. ABDOMEN: Positive bowel sounds x 4. Soft, nondistended. There is moderate tenderness to palpation in the right upper quadrant and epigastric region. No guarding or rebound tenderness. NEURO: Patient was alert and oriented to person place and time. Medical Decision & Procedures ER Provider Diagnostic Interpretation: US GALLBLADDER: Cholelithiasis and sludge. Borderline thickness of the gallbladder wall at 3 mm and probable trace edema. Positive sonographic Farrar sign. Findings suggest cholecystitis in the proper clinical setting. No biliary ductal dilatation. Radiologist: Lizy Flanagan M.D. CHEST XRAY: Cardiac silhouette normal. No infiltrates. No pneumothorax. Per my interpretation. Laboratory Results 06/10/18 23:00 Red Blood Count 4.96, Mean Corpuscular Volume 83.3, Mean Corpuscular Hemoglobin 27.0, Mean Corpuscular Hemoglobin Concent 32.4, Mean Platelet Volume 10.9, Neutrophils (%) (Auto) 65.5, Lymphocytes (%) (Auto) 27.1, Monocytes (%) (Auto) 5.1, Eosinophils (%) (Auto) 1.8, Basophils (%) (Auto) 0.3, Neutrophils # (Auto) 7.69, Lymphocytes # (Auto) 3.19, Monocytes # (Auto) 0.60, Eosinophils # (Auto) 0.21, Basophils # (Auto) 0.04 06/10/18 23:00 Test 06/10/18 23:00 06/10/18 23:11 White Blood Count 11.75 K/uL (4.8-10.8) Red Blood Count 4.96 M/uL (4.2-5.4) Hemoglobin 13.4 g/dL (12.0-16.0) Hematocrit 41.3 % (37-47) Mean Corpuscular Volume 83.3 fL (80-100) Mean Corpuscular Hemoglobin 27.0 pg (25-34) Mean Corpuscular Hemoglobin Concent 32.4 g/dl (32-36) Platelet Count 279 K/uL (130-400) Mean Platelet Volume 10.9 fL (7.4-10.4) Neutrophils (%) (Auto) 65.5 % Lymphocytes (%) (Auto) 27.1 % Monocytes (%) (Auto) 5.1 % Eosinophils (%) (Auto) 1.8 % Basophils (%) (Auto) 0.3 % Neutrophils # (Auto) 7.69 K/uL (1.4-6.5) Lymphocytes # (Auto) 3.19 K/uL (1.2-3.4) Monocytes # (Auto) 0.60 K/uL (0.11-0.59) Eosinophils # (Auto) 0.21 K/uL (0-0.5) Basophils # (Auto) 0.04 K/uL (0-0.2) RDW Standard Deviation 45.2 fL (36.4-46.3) RDW Coefficient of Variation 14.9 % (11.5-14.5) Immature Granulocyte % (Auto) 0.2 % Immature Granulocyte # (Auto) 0.02 K/uL (0.00-0.02) Anion Gap 10.0 mmol/L (3-11) Est Creatinine Clear Calc Drug Dose 95.9 ml/min Estimated GFR () 115.9 Estimated GFR (Non- 100.0 BUN/Creatinine Ratio 11.3 (10-20) Calcium Level 8.2 mg/dl (8.5-10.1) Total Bilirubin 0.1 mg/dl (0.2-1) Direct Bilirubin < 0.1 mg/dl (0-0.2) Aspartate Amino Transf (AST/SGOT) 16 U/L (15-37) Alanine Aminotransferase (ALT/SGPT) 28 U/L (12-78) Alkaline Phosphatase 105 U/L (45-117) Troponin I < 0.015 ng/ml (0-0.045) Total Protein 7.3 gm/dl (6.4-8.2) Albumin 3.7 gm/dl (3.4-5.0) Lipase 145 U/L (73-393) Urine Color YELLOW Urine Appearance CLOUDY (CLEAR) Urine pH 5.0 (4.5-7.5) Urine Specific [place] 1.024 (1.000-1.030) Urine Protein TRACE (NEG) Urine Glucose (UA) NEG (NEG) Urine Ketones NEG (NEG) Urine Occult Blood NEG (NEG) Urine Nitrite NEG (NEG) Urine Bilirubin NEG (NEG) Urine Urobilinogen NEG (NEG) Urine Leukocyte Esterase SMALL (NEG) Urine WBC (Auto) 10-30 /hpf (0-5) Urine RBC (Auto) 0-4 /hpf (0-4) Urine Hyaline Casts (Auto) 5-10 /lpf (0-5) Urine Epithelial Cells (Auto) >30 /lpf (0-5) Urine Bacteria (Auto) 1+ (NEG) Urine Crystals CALCIUM OXALATE (NONE Urine Yeast (Auto) (NONE PRSENT) Urine Test NEG (NEG) Medications Administered Medications (Trade) Dose Ordered Sig/Lillie Route Start Time Stop Time Status Last Admin Dose Admin Ketorolac Tromethamine (Toradol Inj) 15 mg NOW STAT IV 06/10/18 22:59 06/10/18 23:00 DC 06/10/18 23:10 15 MG ED Course The patient was evaluated as above. Labs were drawn and IV access was obtained. Patient was medicated with 15 mg Toradol IV. Gallbladder ultrasound was performed and read by statrad as above. Patient was reevaluated and was feeling better. Findings were discussed with the patient. Dr. Jordan of general surgery was consulted. She will admit the patient. Medical Decision Differential diagnosis includes cholecystitis, pancreatitis, gastroenteritis, choledocholithiasis, gastritis, among others. The patient is a 37-year-old female who presents today complaining of upper abdominal pain. Labs revealed mild leukocytosis of 11.75. Patient had significant tenderness in the right upper quadrant. Gallbladder ultrasound shows evidence of acute cholecystitis. Labs otherwise were unremarkable, with no significant electrolyte abnormalities, no elevation of LFTs. General surgery was consulted and will admit the patient for further evaluation and operative management. Medication Reconcilliation Current Medication List: was personally reviewed by me Blood Pressure Screening Patient's blood pressure: Normal blood pressure Impression Primary Impression: Acute cholecystitis Departure Information Referrals Elizabeth Fraga D.O. (PCP) Patient Instructions [facility]
[2018-06-10 23:49] LABS: ALBUMIN 3.7 gm/dl (3.4-5.0); ALKALINE PHOSPHATASE 105 U/L (45-117); ALT/SGPT 28 U/L (12-78); AST/SGOT 16 U/L (15-37); BLOOD UREA NITROGEN 9 mg/dl (7-18); CALCIUM 8.2 mg/dl (8.5-10.1); CARBON DIOXIDE 20 mmol/L (21-32); CREATININE 0.77 mg/dl (0.60-1.20); GLUCOSE 99 mg/dl (70-99); LIPASE 145 U/L (73-393); POTASSIUM 3.5 mmol/L (3.5-5.1); SODIUM 139 mmol/L (136-145); TOTAL PROTEIN 7.3 gm/dl (6.4-8.2)
[2018-06-11] VITALS (9 sets, daily range): BP systolic 89–131; BP diastolic 56–85; PULSE 61–80; TEMP 36.4–37.3; O2SAT 94–97; Ht 157.5 cm; Wt 73.7 kg
[2018-06-11 00:22] LABS: BASO % 0.3 %; BASO ABS # 0.04 K/uL (0-0.2); EOS % 1.8 %; EOS ABS # 0.21 K/uL (0-0.5); HEMATOCRIT 41.3 % (37-47); HEMOGLOBIN 13.4 g/dL (12.0-16.0); IG# 0.02 K/uL (0.00-0.02); LYMPH % 27.1 %; LYMPH ABS # 3.19 K/uL (1.2-3.4); MEAN CELL VOLUME 83.3 fL (80-100); MEAN CORPUSCULAR HGB CONC 32.4 g/dl (32-36); MEAN PLATELET VOLUME 10.9 fL (7.4-10.4); MONO % 5.1 %; NEUT % 65.5 %; NEUT ABS # 7.69 K/uL (1.4-6.5); PLATELET COUNT 279 K/uL (130-400); RED CELL DISTRIBUTION WIDTH CV 14.9 % (11.5-14.5); RED CELL DISTRIBUTION WIDTH SD 45.2 fL (36.4-46.3); WHITE BLOOD COUNT 11.75 K/uL (4.8-10.8)
[2018-06-11] MEDS ORDERED: NURSING VERBAL MED ORDER ONE (00:30)
[2018-06-11] MEDS ORDERED: ONDANSETRON INJ 2 MG/ML 2 ML VIAL IV PRN ×2 (01:00→13:15)
[2018-06-11] MEDS: MoRPHine SULFATE 2 MG/ML CARP IV PRN ×2 (01:02→03:22)
[2018-06-11] MEDS: AMPICILLIN/SULBACTAM SOD INJ 1,500 MG in SODIUM CHLORIDE 0.9% 100ML 100 ML IV SCH ×3 (01:47→14:05)
[2018-06-11] MEDS: LACTATED RINGER'S 1000ML 1,000 ML IV SCH ×2 (01:47→14:05)
[2018-06-11] MEDS ORDERED: IV FLUIDS COMPLETED PRN (03:15)
--- NOTE | 2018-06-11 06:20 | DIAGNOSTIC IMAGING REPORT ---
CHEST ONE VIEW PORTABLE CLINICAL HISTORY: epigastric pain COMPARISON STUDY: 09/13/2016 FINDINGS: The heart is the upper limits of normal in size. There is no failure. There is no focal pulmonary consolidation. There are no pleural effusions. There is no free intraperitoneal air.[ IMPRESSION: No active disease in the chest. Electronically signed by: Enzo Hutson M.D. 06/11/2018 6:19 AM Dictated Date/Time: 06/11/2018 6:19 AM
--- NOTE | 2018-06-11 06:39 | DIAGNOSTIC IMAGING REPORT ---
BILIARY ULTRASOUND CLINICAL HISTORY: Right upper quadrant abdominal pain COMPARISON STUDY: No previous studies for comparison. FINDINGS: The pancreas appears sonographically normal. The liver appears sonographically normal. There is no ductal dilatation. The common bile duct measures 5 mm. There is a shadowing gallbladder calculus. There is minimal gallbladder sludge. The gallbladder wall is the upper limits of normal thickness measuring 3 mm. There is a ringdown artifact from the anterior gallbladder wall consistent with adenomyomatosis. IMPRESSION: 1. Cholelithiasis and minimal gallbladder sludge. Borderline gallbladder wall thickening. Technologist reported positive sonographic Farrar sign. Clinical correlation regards to acute cholecystitis is recommended. A nuclear medicine hepatobiliary study could be obtained in follow-up to assess cystic duct patency, as deemed clinically indicated. 2. No evidence of ductal dilatation Electronically signed by: Enzo Hutson M.D. 06/11/2018 6:38 AM Dictated Date/Time: 06/11/2018 6:35 AM
--- NOTE | 2018-06-11 08:28 | History and Physical ---
History & Physical Date & Time of Service: Jun 11, 2018 at 08:22 Chief Complaint: Acute Cholecystitis Primary Care Physician: Elizabeth Fraga D.OFabrice History of Present Illness Source: patient 37 yr old woman presents with her first attack of mid epigastric pain, sharp, stabbing, 10/10 in intensity, radiating to right side, associated with diarrhea. No precipitating factors - does not note a relation to fatty foods. Better now with the pain medications. No family history of gallbladder disease. US in ER showed evidence of acute cholecystitis. Past Medical/Surgical History Medical Problems: (1) Closed head injury (2) Concussion (3) Dizziness (4) Full dentures (5) Headache (6) Headache (7) Menorrhagia (8) Sinus arrhythmia seen on electrocardiogram (9) Sinusitis, acute (10) Sinusitis, acute (11) Syncope (12) Syncope (13) term induction syncopal episodes - loop recorder implanted no other surgical procedures Family History No pertinent family history no gallbladder disease, no early heart disease Social History Smoking Status: Current Every Day Smoker (1 ppd ) Alcohol Use: occasionally (up to 9 drinks/ week) Drug Use: none Occupational Status: employed Allergies Coded Allergies: No Known Allergies (Unverified , 06/10/18) Home Medications Scheduled Nortriptyline (Pamelor), 10 MG PO HS Review of Systems Constitutional: No problem reported ENT: No problem reported Respiratory: No problem reported Cardiovascular: No problem reported Abdomen: + pain, + diarrhea Musculoskeletal: No problem reported Genitourinary - Female: No problem reported Neurologic: + problem reported (dizziness, syncopal episodes) Endocrine: No problem reported Hematologic / Lymphatic: No problem reported Integumentary: No problem reported Allergic / Immunologic: No problem reported Physical Exam Vital Signs Date Time Temp Pulse Resp B/P (MAP) Pulse Ox O2 Delivery O2 Flow Rate FiO2 06/11/18 06:49 37.2 80 18 103/63 (76) 95 Room Air 06/11/18 01:20 Room Air 06/11/18 01:20 37.0 80 16 131/85 95 Room Air 06/11/18 01:03 78 16 129/84 98 06/10/18 23:57 83 16 123/69 99 Room Air 06/10/18 22:37 37.3 105 18 125/82 99 Room Air General Appearance: WD/WN, no apparent distress Head: normocephalic, atraumatic Eyes: normal inspection, EOMI ENT: hearing grossly normal, + pertinent finding (wears upper dentures) Neck: supple, no JVD Respiratory/Chest: no respiratory distress, + wheezing (scattered wheezes) Cardiovascular: regular rate, rhythm, no edema, no murmur Abdomen/GI: normal bowel sounds, soft, no organomegaly, + tenderness (mild in RUQ ) Back: normal inspection, normal range of motion Extremities/Musculoskelatal: normal inspection, no pedal edema Neurologic/Psych: alert, oriented x 3 Diagnostics Laboratory Results Results Past 24 Hours Test 06/10/18 23:00 06/10/18 23:11 Range/Units White Blood Count 11.75 4.8-10.8 K/uL Red Blood Count 4.96 4.2-5.4 M/uL Hemoglobin 13.4 12.0-16.0 g/dL Hematocrit 41.3 37-47 % Mean Corpuscular Volume 83.3 80-100 fL Mean Corpuscular Hemoglobin 27.0 25-34 pg Mean Corpuscular Hemoglobin Concent 32.4 32-36 g/dl Platelet Count 279 130-400 K/uL Mean Platelet Volume 10.9 7.4-10.4 fL Neutrophils (%) (Auto) 65.5 % Lymphocytes (%) (Auto) 27.1 % Monocytes (%) (Auto) 5.1 % Eosinophils (%) (Auto) 1.8 % Basophils (%) (Auto) 0.3 % Neutrophils # (Auto) 7.69 1.4-6.5 K/uL Lymphocytes # (Auto) 3.19 1.2-3.4 K/uL Monocytes # (Auto) 0.60 0.11-0.59 K/uL Eosinophils # (Auto) 0.21 0-0.5 K/uL Basophils # (Auto) 0.04 0-0.2 K/uL RDW Standard Deviation 45.2 36.4-46.3 fL RDW Coefficient of Variation 14.9 11.5-14.5 % Immature Granulocyte % (Auto) 0.2 % Immature Granulocyte # (Auto) 0.02 0.00-0.02 K/uL Sodium Level 139 136-145 mmol/L Potassium Level 3.5 3.5-5.1 mmol/L Chloride Level 109 98-107 mmol/L Carbon Dioxide Level 20 21-32 mmol/L Anion Gap 10.0 3-11 mmol/L Blood Urea Nitrogen 9 7-18 mg/dl Creatinine 0.77 0.60-1.20 mg/dl Est Creatinine Clear Calc Drug Dose 95.9 ml/min Estimated GFR () 115.9 Estimated GFR (Non- 100.0 BUN/Creatinine Ratio 11.3 10-20 Random Glucose 99 70-99 mg/dl Calcium Level 8.2 8.5-10.1 mg/dl Total Bilirubin 0.1 0.2-1 mg/dl Direct Bilirubin < 0.1 0-0.2 mg/dl Aspartate Amino Transf (AST/SGOT) 16 15-37 U/L Alanine Aminotransferase (ALT/SGPT) 28 12-78 U/L Alkaline Phosphatase 105 45-117 U/L Troponin I < 0.015 0-0.045 ng/ml Total Protein 7.3 6.4-8.2 gm/dl Albumin 3.7 3.4-5.0 gm/dl Lipase 145 73-393 U/L Urine Color YELLOW Urine Appearance CLOUDY CLEAR Urine pH 5.0 4.5-7.5 Urine Specific [place] 1.024 1.000-1.030 Urine Protein TRACE NEG Urine Glucose (UA) NEG NEG Urine Ketones NEG NEG Urine Occult Blood NEG NEG Urine Nitrite NEG NEG Urine Bilirubin NEG NEG Urine Urobilinogen NEG NEG Urine Leukocyte Esterase SMALL NEG Urine WBC (Auto) 10-30 0-5 /hpf Urine RBC (Auto) 0-4 0-4 /hpf Urine Hyaline Casts (Auto) 5-10 0-5 /lpf Urine Epithelial Cells (Auto) >30 0-5 /lpf Urine Bacteria (Auto) 1+ NEG Urine Crystals CALCIUM OXALATE NONE PRSENT Urine Yeast (Auto) NONE PRSENT Urine Test NEG NEG Microbiology Results 06/10/18 Urine Culture, Received Pending Diagnostic Radiology RUQ US IMPRESSION: 1. Cholelithiasis and minimal gallbladder sludge. Borderline gallbladder wall thickening. Technologist reported positive sonographic Farrar sign. Clinical correlation regards to acute cholecystitis is recommended. A nuclear medicine hepatobiliary study could be obtained in follow-up to assess cystic duct patency, as deemed clinically indicated. 2. No evidence of ductal dilatation Impression Assessment and Plan 37 yr old woman with acute calculous cholecystitis - Farrar's sign on admission , mild leukocytosis. Currently improving on antibiotics and pain medications. Discussed laparoscopic cholecystectomy with risks of bleeding, infection, conversion to open, postop bile leak or retained stone requiring ercp. Consent signed for OR today. Advanced Directives Existing Living Will: No Existing Power of Promotions Coordinator: No Resuscitation Status VTE Prophylaxis Will order VTE Prophylaxis: Yes
[2018-06-11] MEDS ORDERED: DEXAMETHASONE SOD INJ 4 MG/ML VIAL ONE (09:57)
[2018-06-11] MEDS ORDERED: PROPOFOL IV EMULSION 10 MG/ML 20 ML VIAL ONE (09:57)
[2018-06-11] MEDS ORDERED: GLYCOPYRROLATE INJ 0.2 MG/ML VIAL ONE (09:57)
[2018-06-11] MEDS ORDERED: NEOSTIGMINE METHYLSULFATE 5 MG/5 ML SYR ONE (09:57)
[2018-06-11] MEDS ORDERED: LIDOCAINE HCL 2% 2 ML VIAL (20MG/ML) ONE (09:57)
[2018-06-11] MEDS ORDERED: FENTANYL CITRATE INJ 50 MCG/1 ML 2 ML VIAL ONE ×3 (09:57→13:26)
[2018-06-11] MEDS ORDERED: MIDAZOLAM HCL 1 MG/ML 2ML VIAL ONE (09:57)
[2018-06-11] MEDS ORDERED: ONDANSETRON INJ 2 MG/ML 2 ML VIAL ONE (09:57)
[2018-06-11] MEDS ORDERED: BUPIVACAINE 0.5 % 5 MG/1 ML PF 10ML VIAL ONE (10:03)
[2018-06-11] MEDS ORDERED: KETOROLAC TROMETHAMINE 30 MG/ML VIAL ONE (12:42)
--- NOTE | 2018-06-11 12:55 | [facility] Post Operative Brief Note ---
Immediate Operative Summary Operative Date Jun 11, 2018. Pre-Operative Diagnosis Acute Calculous Cholecystitis Post-Operative Diagnosis Same Procedure(s) Performed Laparoscopic Cholecystectomy Surgeon Brock Jordan Emergency Room Physician Assistant Surgeon(s) none Estimated Blood Loss 5 ml Findings Consistent with Post-Op Diagnosis Specimens Gallbladder and contents Drains None Anesthesia Type General Complication(s) none Disposition Disposition: Recovery Room / PACU
[2018-06-11] MEDS ORDERED: MoRPHine SULFATE 4 MG/ML 1 ML CARP\\VIAL IV PRN (13:00)
[2018-06-11] MEDS ORDERED: KETOROLAC TROMETHAMINE 15 MG/ML VIAL IV PRN (13:00)
[2018-06-11] MEDS ORDERED: ACETAMINOPHEN 325 MG TAB PO PRN (13:00)
[2018-06-11] MEDS ORDERED: MoRPHine SULFATE 2 MG/ML CARP IV PRN ×2 (13:00)
[2018-06-11] MEDS ORDERED: OXYCODONE/ACETAMINOPHEN 5-325 TAB PO PRN ×2 (13:00)
--- NOTE | 2018-06-11 13:04 | [facility] Operative Report ---
Operative Report Operative Date Jun 11, 2018. 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 Consented for laparoscopic cholecystectomy. Description of Procedure The patient was on unasyn preoperatively. She had placement of SCD's. After the induction of GET, her abdomen was prepped and draped sterilely. She was placed in trendelenburg. A supraumbilical incision was made and the veress needle placed into the abdominal cavity. This was tested with the saline drop test. Pneumoperitoneum was established - initial pressure was 4 mmHg and taken to 15 mmHG. A 5 mm trocar was placed. Three additional trocars were placed under direct vision - a 11 mm in the epigastrium and two 5 mm in the right upper abdomen. The gallbladder was noted to be decompressed with a stone in its neck, nonobstructing. The liver had evidence of fatty change but no hepatomegaly. The gallbladder was grasped and retracted over the edge of the liver. Dissection was begun at the triangle of Calot and the cystic duct identified. Critical views were seen anteriorly and posteriorly. The duct was divided between clips with two clips on the remaining side. The cystic artery was taken as a single branch between clips. The gallbladder was dissected off of the liver bed without difficulty. It was removed in an endobag through the epigastric incision. The abdomen was irrigated and noted to be hemostatic. The trocars were removed after pneumoperitoneum was released. The fascia of the epigastrium was closed with a 0 vicryl suture. The skin of all 4 incisions was closed with 4 -0 vicryl suture. Steristrips and sterile dressings were applied. She was awakened and taken to recovery under stable condition. I attest to the content of the Intraoperative Record and any orders documented therein. Any exceptions are noted below.
[2018-06-11] MEDS ORDERED: OXYC-57 PO (13:05)
--- NOTE | 2018-06-11 13:09 | Discharge Instructions ---
Discharge Instructions Date of Service Jun 11, 2018. Admission Reason for Admission: Acute Cholecystitis Discharge Discharge Diagnosis / Problem: s/p lap cholecystectomy Discharge Goals Goal(s): Decrease discomfort Activity Recommendations Activity Limitations: resume your previous activity (walking/ stairs OK today) Lifting Limitations: no more than 10 pounds (for 2 wks) Exercise/Sports Limitations: until after follow-up appointment May Resume Sexual Activity: after two weeks Shower/Bathe: tomorrow (remove outer gauze bandages prior to shower) Driving or Machine Use: resume 3-5 days if off of narcotics . Current Hospital Diet Patient's current hospital diet: Clear Liquid Diet Discharge Diet Recommended Diet: Low Fat Diet (helps to stay on low fat foods for 4-6 weeks) Procedures Procedures Performed: Laparoscopic Cholecystectomy Pending Studies Studies pending at discharge: yes (pathology) List of pending studies: pathology Work Instructions Return To Work: after follow-up (2 weeks off of work) Lifting Limitations: no more than 10 pounds (for 2 wks) Medical Emergencies . Who to Call and When: Medical Emergencies: If at any time you feel your situation is an emergency, please call 911 immediately. . Non-Emergent Contact Non-Emergency issues call your: Surgeon Contact Number: [phone] Call Non-Emergent contact if: temperature is above 101.5, your pain is not controlled, your pain is worsening, your pain is unusual for you, your pain is concerning you, wound has increased drainage, wound has increased redness, wound has increased pain, you have any medication questions . "Provider Documentation" section prepared by Shannan Jordan. . [place] Drug Monitoring Program Search Results: patient reviewed within database, no issues identified
[2018-06-11] MEDS ORDERED: HYDROmorphone INJ 1 MG/ML SYR IV PRN (13:15)
[2018-06-11] MEDS ORDERED: EpHEDrine SULFATE INJ 50 MG/ML AMP IV PRN (13:15)
[2018-06-11] MEDS ORDERED: ATROPINE SULFATE 0.1 MG/ML 5ML SYR IV PRN (13:15)
[2018-06-11] MEDS ORDERED: FENTANYL CITRATE INJ 50 MCG/1 ML 2 ML VIAL IV PRN (13:15)
[2018-06-11] MEDS ORDERED: PROMETHAZINE HCL INJ 6.25 MG in SODIUM CHLORIDE 0.9% 50ML 50 ML IV PRN (13:15)
--- NOTE | 2018-06-11 13:43 | Anesthesiology Progress Note ---
Anesthesia Post Op Note Date & Time Jun 11, 2018 at 13:42 Vital Signs Pain Intensity: 6 Vital Signs Past 12 Hours Date Time Temp Pulse Resp B/P (MAP) Pulse Ox O2 Delivery O2 Flow Rate FiO2 06/11/18 13:40 61 16 115/60 96 Nasal Cannula 2 06/11/18 13:30 60 16 128/66 93 Room Air 06/11/18 13:20 74 16 101/62 100 Oxymask 5 06/11/18 13:10 68 16 105/72 100 Oxymask 10 06/11/18 13:03 36.4 80 16 109/72 98 Oxymask 10 06/11/18 09:45 Room Air 06/11/18 06:49 37.2 80 18 103/63 (76) 95 Room Air Notes Mental Status: alert / awake / arousable, participated in evaluation Pt Amnestic to Procedure: Yes Nausea / Vomiting: adequately controlled Pain: adequately controlled Airway Patency, RR, SpO2: stable & adequate BP & HR: stable & adequate Hydration State: stable & adequate Anesthetic Complications: no major complications apparent
[2018-06-11] MEDS ORDERED: NORTRIPTYLINE HCL 10 MG CAP PO SCH (21:00)
== END 2018-06-11 18:25 | disposition home or self-care (01) ==
LOC: C.EDB 22:34 → C.MSN 06-11 00:40 → ENRESERV 06-11 00:55
PROVIDERS: ADMIT Surgery; ATTEND Surgery
DX: K80.12 Calculus of gallbladder with acute and chronic cholecystitis without obstruction (principal); F17.200 Nicotine dependence, unspecified, uncomplicated